=== PATIENT | female | born 1970 | race Caucasian/White ===

== ENCOUNTER 2018-02-27 09:37 | Emergency (ER) | payer OTHER ==
[~2018-02-27] VITALS: Ht 149.9 cm; Wt 54.0 kg
[2018-02-27 09:46] VITALS: BP 139/64; Ht 149.9 cm; Wt 54.0 kg
[2018-02-27 11:09] LABS: FREE T4 1.06 ng/dL (0.76-1.46); FREE THYROXINE INDEX 2.7 ug/dL (1.4-4.5); T4(THYROXINE) 7.7 ug/dL (4.7-13.3)
[2018-02-27 11:12] LABS: BASOPHIL % 0.5 % (0-2); PLATELET COUNT 301 x10^3mcL (130-400)
[2018-02-27 11:16] LABS: T3 TOTAL 1.55 ng/mL
[2018-02-27 11:20] LABS: RED CELL DISTRIBUTION WIDTH 15.6 % (11.5-14.5)
[2018-02-27 11:22] LABS: CALCIUM 8.1 mg/dL (8.5-10.1); CARBON DIOXIDE 22.9 mmol/L (21-32); CHLORIDE SERUM 108 mmol/L (98-107); CREATININE SERUM 0.8 mg/dL (0.6-1.0); GFR1 > 60 mL/min; GLUCOSE SERUM 107 mg/dL (74-106); POTASSIUM SERUM 3.3 mmol/L (3.5-5.1); SODIUM SERUM 140 mmol/L (136-145)
[2018-02-27 11:25] LABS: AMPHETAMINE QUAL UR NONE DETECTED (See below)
[2018-02-27 11:26] LABS: ALBUMIN 3.7 g/dL (3.4-5.0); ALKALINE PHOSPHATASE 67 U/L (46-116); ALT/SGPT 37 U/L (14-59); AST/SGOT 10 U/L (15-37); BILIRUBIN TOTAL 0.62 mg/dL (0.20-1.00); TOTAL PROTEIN, SERUM 6.6 g/dL (6.4-8.2)
== END 2018-02-27 13:40 | disposition home or self-care (01) ==
LOC: ED 09:37
PROVIDERS: Emergency Medicine
DX: K20.9 Esophagitis, unspecified (principal); R55 Syncope and collapse; E87.6 Hypokalemia; R06.4 Hyperventilation; Z88.6 Allergy status to analgesic agent; Z88.5 Allergy status to narcotic agent
CPT/HCPCS: 84439; J2405; J7030; J8597; Q0092